=== PATIENT | male | born 2000 | race Caucasian/White ===

== ENCOUNTER 2019-06-02 23:48 | Emergency (ER) | payer SELFPAY ==
[~2019-06-02] VITALS: Ht 188 cm; Wt 78.9 kg
[2019-06-02 23:53] VITALS: BP_SYST 117
[2019-06-03] MEDS: HYDROcodone/ACETAMIN 5-325 MG TAB (NORCO/ VICODIN) PO ONE (04:08)
[2019-06-03] MEDS: cefTRIAXone 1 GM in LIDOCAINE 1%, 20 ML MDV 2.1 ML IM ONE (04:12)
[2019-06-03] MEDS: LIDOCAINE VISCOUS 2%, 15 ML UDC MM ONE (04:29)
[2019-06-03 04:30] VITALS: BP_SYST 122
== END 2019-06-03 04:30 | disposition home or self-care (01) ==
LOC: SED 23:48
DX: J02.0 Streptococcal pharyngitis (principal)
CPT/HCPCS: 36415; 86403; 87081; 96372; 99283; J0696; J2001 ×2